=== PATIENT | female | born 1975 | race Caucasian/White ===

== ENCOUNTER 2018-01-05 14:48 | Emergency (ER) | payer OTHER, MEDICAID ==
[~2018-01-05] VITALS: Ht 154.9 cm; Wt 101.6 kg
[~2018-01-05 14:48] MED LIST: AMOXICILLIN 50500 M1 PO; AMOXICILLIN 50500 MG PO; FAMOTIDINE PO; IBUPROFEN 600600 M1 PO; NOHOMEMEDICATIONS; TRINATE TABLET1 TAB PO
[2018-01-05] MEDS ORDERED: IBUPROFEN 800800 M1 PO (14:55)
[2018-01-05] MEDS ORDERED: ULTRAM 50MG TAB50 MG PO (17:12)
[2018-01-05] MEDS ORDERED: PREDNISONE 10 M10 MG PO (17:12)
[2018-01-05 17:28] VITALS: BP 143/81
== END 2018-01-05 17:29 | disposition home or self-care (01) ==
LOC: M.ERS 14:48
DX: G89.29 Other chronic pain (principal); M25.511 Pain in right shoulder

== ENCOUNTER 2018-12-29 09:02 | Emergency (ER) | payer OTHER, MEDICAID ==
[~2018-12-29] VITALS: Ht 154.9 cm; Wt 97.5 kg
[~2018-12-29 09:02] MED LIST changes: +IBUPROFEN 800800 M1 PO; +PREDNISONE 10 M10 MG PO; +ULTRAM 50MG TAB50 MG PO
[2018-12-29] MEDS ORDERED: PENICILLIN V P500 MG PO (09:30)
[2018-12-29] MEDS ORDERED: IBUPROFEN 800800 M1 PO (09:30)
[2018-12-29] MEDS ORDERED: ULTRAM 50MG TAB50 MG PO (09:30)
[2018-12-29 09:42] VITALS: BP 144/88
== END 2018-12-29 09:43 | disposition home or self-care (01) ==
LOC: M.ERS 09:02
DX: K04.7 Periapical abscess without sinus (principal); R22.0 Localized swelling, mass and lump, head; Z88.5 Allergy status to narcotic agent; Z98.890 Other specified postprocedural states

== ENCOUNTER 2019-09-16 08:21 | Emergency (ER) | payer OTHER, MEDICAID ==
[~2019-09-16] VITALS: Ht 154.9 cm; Wt 108.4 kg
[~2019-09-16 08:21] MED LIST changes: +PENICILLIN V P500 MG PO
[2019-09-16] MEDS ORDERED: [UNRECOGNIZED DRUG - REMARK] (08:37)
[2019-09-16 08:58] LABS: ABSOLUTE BASOPHILS 0.1 thou/uL (0.0-0.2); ABSOLUTE EOSINOPHILS 0.2 thou/uL (0.0-0.7); ABSOLUTE LYMPHOCYTES 1.9 thou/uL (0.8-5.3); ABSOLUTE MONOCYTES 0.3 thou/uL (0.0-1.2); ABSOLUTE NEUTROPHILS 8.2 thou/uL (1.6-8.1); BASOPHILS 0.5 %; EOSINOPHILS 2.2 %; HEMATOCRIT 36.6 % (37.0-47.0); LYMPHOCYTES 17.9 %; MCH 26.5 pg (26.0-34.0); MCHC 32.7 g/dL (28.0-37.0); MPV 6.4 fl. (7.2-11.1); NUCLEATED RBCS 0 /100WBC; PLATELET COUNT* 388 thou/uL (150-400); POLYS 76.4 %; RBC 4.52 mil/uL (4.20-5.00); WBC 10.7 thou/uL (4.0-11.0)
[2019-09-16 09:09] LABS: CALCIUM 9.1 mg/dL (8.5-10.1); CREATININE 0.7 mg/dL (0.6-1.3); POTASSIUM 3.9 mmol/L (3.5-5.1)
[2019-09-16 09:17] LABS: ALBUMIN 3.4 g/dL (3.4-5.0); MAGNESIUM 1.9 mg/dL (1.8-2.4); TOTAL BILIRUBIN 0.7 mg/dL (<0.1-1.0); TOTAL PROTEIN 7.9 g/dL (6.4-8.2)
[2019-09-16] MEDS ORDERED: IBUPROFEN 800800 M1 PO (09:26)
[2019-09-16] MEDS ORDERED: FLEXERIL PO (09:26)
[2019-09-16] MEDS ORDERED: NORCO 5-325 TA1 EAC1 PO (09:26)
[2019-09-16] MEDS ORDERED: PREDNISONE50 MG PO (09:26)
[2019-09-16 09:31] VITALS: BP 145/98
--- NOTE | 2019-09-18 16:21 | EKG ---
[place] [address] ELECTROCARDIOGRAM REPORT Name: NAIMA MARTIN Room: [facility]#: [id number] Admission: 09/16/19 Attend Phys: Discharge: 09/16/19 Date of : 79 Report #: [id number] THIS REPORT FOR: //name// [facility] ED Test Date: 2019-09-16 Test Time: 08:42:02 Pat Name: NAIMA MARTIN Department: Room: Gender: F Human Resources Officer: : 1975 Requested By: Kolby Benson Order Number: [id number] MD: Moises Bauman Measurements Intervals [place] Rate: 91 P: 72 [place]: 145 QRS: 46 QRSD: 88 T: 39 QT: 368 QTc: 453 Interpretive Statements Sinus rhythm Compared to ECG 10/02/2011 20:36:20 Sinus arrhythmia no longer present Electronically Signed On 09-18-2019 16:21:05 CDT by Moises Bauman [email or web address] <ELECTRONICALLY SIGNED> By: Moises Bauman MD, MERGED WITH [facility] 09/18/19 [id number] [id number] Moises Bauman MD, FACC /EPI
== END 2019-09-16 09:32 | disposition home or self-care (01) ==
LOC: M.ERS 08:21
PROVIDERS: Emergency Medicine Emergency Medical Services
DX: M54.12 Radiculopathy, cervical region (principal); R07.89 Other chest pain; Z88.5 Allergy status to narcotic agent; Z98.890 Other specified postprocedural states

== ENCOUNTER 2020-11-17 16:12 | Emergency (ER) | payer OTHER, MEDICAID ==
[~2020-11-17] VITALS: Ht 154.9 cm; Wt 95.3 kg
[~2020-11-17 16:12] MED LIST changes: +FLEXERIL PO; +NORCO 5-325 TA1 EAC1 PO; +PREDNISONE50 MG PO; +[UNRECOGNIZED DRUG - REMARK]
[2020-11-17] MEDS ORDERED: PROTONIX40 M2 PO (16:36)
[2020-11-17] MEDS ORDERED: AUGMENTIN 875-1 EACH PO (17:05)
[2020-11-17] MEDS ORDERED: AFRIN15 ML NS (17:05)
[2020-11-17] MEDS ORDERED: PREDNISONE 20 M20 MG PO (17:05)
[2020-11-17 17:25] VITALS: BP 139/75
== END 2020-11-17 17:25 | disposition home or self-care (01) ==
LOC: M.ERS 16:12
DX: J01.90 Acute sinusitis, unspecified (principal); Z20.828 Contact with and (suspected) exposure to other viral communicable diseases; Z88.5 Allergy status to narcotic agent; Z98.890 Other specified postprocedural states

== ENCOUNTER 2020-11-25 18:04 | Emergency (ER) | payer OTHER, MEDICAID ==
[~2020-11-25] VITALS: Ht 154.9 cm; Wt 97.5 kg
[~2020-11-25 18:04] MED LIST changes: +AFRIN15 ML NS; +AUGMENTIN 875-1 EACH PO; +PREDNISONE 20 M20 MG PO; +PROTONIX40 M2 PO
[2020-11-25 18:49] LABS: INFLUENZA A ANTIGEN Negative (Negative); INFLUENZA B ANTIGEN Negative (Negative)
[2020-11-25] MEDS ORDERED: ROBAXIN 750 MG750 MG PO (18:55)
[2020-11-25 19:23] VITALS: BP 132/68
== END 2020-11-25 19:23 | disposition home or self-care (01) ==
LOC: M.ERS 18:04
PROVIDERS: Nurse Practitioner Family
DX: J32.0 Chronic maxillary sinusitis (principal); J02.9 Acute pharyngitis, unspecified; Z20.828 Contact with and (suspected) exposure to other viral communicable diseases; M79.18 Myalgia, other site; Z88.5 Allergy status to narcotic agent; Z98.890 Other specified postprocedural states

== ENCOUNTER 2021-05-28 17:32 | Emergency (ER) | payer OTHER, MEDICAID ==
[~2021-05-28] VITALS: Ht 154.9 cm; Wt 99.8 kg
[~2021-05-28 17:32] MED LIST changes: +ROBAXIN 750 MG750 MG PO
[2021-05-28] MEDS ORDERED: ALPRAZOLAM XR3 MG (17:44)
[2021-05-28 18:44] LABS: ABSOLUTE BASOPHILS 0.1 thou/uL (0.0-0.2); ABSOLUTE EOSINOPHILS 0.4 thou/uL (0.0-0.7); ABSOLUTE LYMPHOCYTES 2.8 thou/uL (0.8-5.3); ABSOLUTE MONOCYTES 0.3 thou/uL (0.0-1.2); ABSOLUTE NEUTROPHILS 6.9 thou/uL (1.6-8.1); BASOPHILS 0.8 %; EOSINOPHILS 3.4 %; MCH 25.2 pg (26.0-34.0); MCHC 32.2 g/dL (28.0-37.0); MCV 78.1 fL (80.0-100.0); MPV 6.3 fl. (7.2-11.1); NUCLEATED RBCS 0 /100WBC; PLATELET COUNT* 416 thou/uL (150-400); POLYS 65.8 %; RBC 4.36 mil/uL (4.20-5.00); RDW-CV 15.4 % (10.5-14.5); WBC 10.5 thou/uL (4.0-11.0)
[2021-05-28 18:57] LABS: CREATININE 0.7 mg/dL (0.6-1.3)
[2021-05-28 18:58] LABS: ALBUMIN 3.2 g/dL (3.4-5.0); TOTAL BILIRUBIN 0.3 mg/dL (<0.1-1.0); TOTAL PROTEIN 7.7 g/dL (6.4-8.2)
[2021-05-28] MEDS ORDERED: PROTONIX40 M2 PO (21:34)
[2021-05-28] MEDS ORDERED: VENTOLIN HFA 1818 GM INH (21:34)
[2021-05-28] MEDS ORDERED: AUGMENTIN 875-1 EACH PO (21:34)
[2021-05-28 21:42] VITALS: BP 133/84
--- NOTE | 2021-05-29 11:50 | EKG ---
[place] [address] ELECTROCARDIOGRAM REPORT Name: NICOLEISIS NARAYANYL Argelia Room: [facility]#: [id number] Admission: 05/28/21 Attend Phys: Discharge: 05/28/21 Date of : 79 Date of Service: 05/28/21 1908 Report #: [id number] THIS REPORT FOR: //name// [facility] ED Test Date: 2021-05-28 Test Time: 19:08:28 Pat Name: NAIMA MARTIN Department: Room: Gender: Retread Operator: : 1975 Requested By: Charla Mcdonald Order Number: [id number] MD: Ambrose Power Measurements Intervals [place] Rate: 88 P: 53 RI: 120 QRS: 46 QRSD: 90 T: 31 QT: 358 QTc: 434 Interpretive Statements Sinus rhythm Compared to ECG 09/16/2019 08:42:02 No significant changes Electronically Signed On 05-29-2021 11:50:01 CDT by Ambrose Power [email or web address] <ELECTRONICALLY SIGNED> By: Ambrose Power MD, [facility] 05/29/21 1150 1908 07 Ambrose Power MD, [facility] /EPI
== END 2021-05-28 21:43 | disposition home or self-care (01) ==
LOC: M.ERS 17:32
PROVIDERS: Nurse Practitioner Family
DX: J01.90 Acute sinusitis, unspecified (principal); Z20.822 Contact with and (suspected) exposure to COVID-19; K21.9 Gastro-esophageal reflux disease without esophagitis; Z88.5 Allergy status to narcotic agent; Z98.890 Other specified postprocedural states

== ENCOUNTER 2021-12-24 09:12 | Emergency (ER) | payer OTHER, MEDICAID ==
[~2021-12-24] VITALS: Ht 154.9 cm; Wt 99.8 kg
[~2021-12-24 09:12] MED LIST changes: +ALPRAZOLAM XR3 MG; +VENTOLIN HFA 1818 GM INH
[2021-12-24 09:59] LABS: URINE BILIRUBIN NEGATIVE (Negative); URINE BLOOD 2+ (Negative); URINE CLARITY CLEAR; URINE COLOR YELLOW; URINE GLUCOSE-RANDOM NEGATIVE (Negative); URINE KETONES NEGATIVE (Negative); URINE LEUKOCYTES-REFLEX NEGATIVE (Negative); URINE NITRITE-REFLEX NEGATIVE (Negative); URINE PROTEIN TRACE (Negative); URINE SPECIFIC GRAVITY >= 1.030 (1.005-1.030); URINE UROBILINOGEN 0.2 E.U./dl (0.2-1.0)
[2021-12-24 10:08] LABS: BACTERIA-REFLEX None Seen /HPF (None Seen); CASTS None Seen /LPF (None Seen); CRYSTALS None Seen /LPF (None Seen); SQUAMOUS 4-10 Moderate /LPF (0-3); URINE RBC 3-10 Few /HPF (0-2); URINE WBC-REFLEX None Seen /HPF (0-5)
[2021-12-24 10:59] LABS: ABSOLUTE BASOPHILS 0.1 thou/uL (0.0-0.2); ABSOLUTE EOSINOPHILS 0.1 thou/uL (0.0-0.7); ABSOLUTE LYMPHOCYTES 1.3 thou/uL (0.8-5.3); ABSOLUTE MONOCYTES 0.5 thou/uL (0.0-1.2); ABSOLUTE NEUTROPHILS 10.1 thou/uL (1.6-8.1); BASOPHILS 0.9 %; EOSINOPHILS 0.6 %; HEMATOCRIT 34.2 % (37.0-47.0); HEMOGLOBIN 10.6 gm/dL (12.0-15.0); LYMPHOCYTES 10.8 %; MCH 23.6 pg (26.0-34.0); MCHC 31.1 g/dL (28.0-37.0); MCV 75.7 fL (80.0-100.0); MONOCYTES 3.8 %; MPV 6.3 fl. (7.2-11.1); NUCLEATED RBCS 0 /100WBC; PLATELET COUNT* 472 thou/uL (150-400); POLYS 83.9 %; RBC 4.51 mil/uL (4.20-5.00); RDW-CV 15.8 % (10.5-14.5)
[2021-12-24 11:30] LABS: CALCIUM 8.8 mg/dL (8.5-10.1); CREATININE 1.1 mg/dL (0.6-1.3); POTASSIUM 4.3 mmol/L (3.5-5.1)
[2021-12-24 11:35] LABS: ALBUMIN 3.3 g/dL (3.4-5.0); TOTAL BILIRUBIN 0.3 mg/dL (<0.1-1.0); TOTAL PROTEIN 7.5 g/dL (6.4-8.2)
[2021-12-24] MEDS ORDERED: PERCOCET PO (11:44)
[2021-12-24 12:00] VITALS: BP 147/89
== END 2021-12-24 12:01 | disposition home or self-care (01) ==
LOC: M.ERS 09:12
PROVIDERS: Family Medicine; Student in an Organized Health Care Education/Training Program
DX: N20.1 Calculus of ureter (principal); R11.10 Vomiting, unspecified; F41.0 Panic disorder [episodic paroxysmal anxiety]; K21.9 Gastro-esophageal reflux disease without esophagitis; Z98.890 Other specified postprocedural states; Z79.899 Other long term (current) drug therapy; Z88.5 Allergy status to narcotic agent